=== PATIENT | female | born 1990 | race Caucasian/White ===

== ENCOUNTER 2022-02-18 00:43 | Day surgery (SDC) | payer OTHER, SELFPAY ==
[2022-02-04 13:32] VITALS: BMI 20.3
[2022-02-18 06:30] VITALS: BP 128/80; PULSE 95; RESP 20; TEMP 36.6; O2SAT 100
[2022-02-18] MEDS: LACTATED RINGERS 1,000 ML 150 ML IV CONT (06:48)
--- NOTE | 2022-02-18 07:01 | WPDANESEPPF ---
Anes - Initial Pre Proc Eval Procedure: Operation Date: 02/18/22 07:30 Proposed Procedures p Colonoscopy - Reg Brooks MD Date/Time: 02/18/22 07:01 Surgeon: Reg Brooks MD Pre Op Diagnosis: abnormal CAT scan Patient Data Age: 31 Gender: F Height: 1.7 m Weight: 57.8 kg Last Vital Signs Temp 36.6 C 02/18/22 06:30 Pulse 95 02/18/22 06:30 Resp 20 02/18/22 06:30 BP 128/80 02/18/22 06:30 Pulse Ox 100 02/18/22 06:30 Allergies Allergy/AdvReac Type Severity Reaction Status Date / Time No Known Allergies Allergy Verified 02/18/22 06:26 Home Medications Medication Instructions Recorded Confirmed Type levonorgestrel 20.1 mcg/24 hrs (6 1 device INTRAUTERINE ONCE #1 ea 06/29/21 02/04/22 Rx yrs) 52 mg intrauterine device Patient hx anesthesia problems: none Family hx anesthesia problems: none Results Review: All pre-operative results and documents have been reviewed as part of the pre-operative evaluation. [facility] Family History Family History Grandparent Diabetes mellitus Family history of glaucoma Hypertension Family history of lung cancer Family history of malignant neoplasm of brain Father Family history of hypercholesterolemia Hypertension Mother Family history of malignant melanoma Social History Social History Smoking status: Never smoker Alcohol intake: current Living arrangements: with family Anes - Eval Final PreProcedure Day of Procedure 02/18/22 07:01 Patient weight: normal Heart: regular rate and rhythm Lungs: clear to auscultation Airway: Mallampati scale class II Neurological: alert and oriented Last oral intake: >/= 8 hours ASA classification: I Emergent: no Anesthetic plan: proceed Anesthesia type and monitoring: general GIVS and standard monitoring Results Review: All pre-operative results and documents have been reviewed as part of the pre-operative evaluation. Informed Consent: The patient's anesthetic plan and its attendant risks and benefits were discussed with the patient/family/POA. Questions were solicited and answers provided to the satisfaction of the patient/family/POA.
--- NOTE | 2022-02-18 07:47 | WPDGICN ---
Assessment and Plan Assessment and plan (1) IBS (irritable bowel syndrome): Code(s): K58.9 - Irritable bowel syndrome without diarrhea Status: Acute Assessment and Plan: Patient's symptoms appear to correlate mostly with irritable bowel syndrome. Organic disease cannot be excluded for this reason colonoscopy will be performed high-fiber diet is advised. (2) Constipation: Code(s): K59.00 - Constipation, unspecified Status: Acute Assessment and Plan: Patient has tendency towards constipation would advise fiber supplement such as Metamucil daily supplement this with MiraLax as needed. (3) Abnormal CT scan, colon: Code(s): R93.3 - Abnormal findings on diagnostic imaging of other parts of digestive tract Status: Acute Assessment and Plan: CT scan performed in November suggest thickening of the rectosigmoid area. Plan is for colonoscopy to exclude organic disease. Possibilities include spasm or colitis. Further recommendations will be given after colonoscopy. GI Consult Note Consult date/time: 02/18/22 07:47 HPI: Venice Lane is a 31 year old female Presents for colonoscopy. Patient reports abdominal pain and constipation. This became very intense in November prompting her to go to the ER. CT scan suggests thickening of the sigmoid and rectum. Patient has noted difficulty with constipation. Occasionally straining with hard stool and subsequent irritation at the anus she has very infrequently noted bright red blood per rectum. Her family history is significant her grandmother may have had ulcerative colitis. There is no known history of polyps or cancer. She apparently has tried some probiotics. She continues to have difficulties with pain in in bowel habits but these may have improved over recent months. She presents today for colonoscopy because a CT scan done in November. Review of Systems Review of Systems: All systems reviewed & are unremarkable except as noted in HPI and below PMFSH Family History Family History Grandparent Diabetes mellitus Family history of glaucoma Hypertension Family history of lung cancer Family history of malignant neoplasm of brain Father Family history of hypercholesterolemia Hypertension Mother Family history of malignant melanoma Social History Social History Smoking status: Never smoker Alcohol intake: current Living arrangements: with family Meds Home Medications and Allergies Home Medications Medication Instructions Recorded Confirmed Type levonorgestrel 20.1 mcg/24 hrs (6 1 device INTRAUTERINE ONCE #1 ea 06/29/21 02/04/22 Rx yrs) 52 mg intrauterine device Allergies Allergy/AdvReac Type Severity Reaction Status Date / Time No Known Allergies Allergy Verified 02/18/22 06:26 Vital Signs Vital Signs - 24 hr 02/18/22 06:30 Temperature 98 F Pulse Rate 95 Respiratory Rate 20 Blood Pressure 128/80 Pulse Oximetry 100 Exam Narrative: Physical exam reveals patient to be alert. Vital signs stable. HEENT exam is unremarkable. Patient is anicteric. Lungs are clear to auscultation and percussion. Heart is without murmur or extra sounds. Abdominal exam bowel sounds are present soft nontender with no organomegaly. Digital external rectal exam is normal.
[2022-02-18 07:49] VITALS: BP 81/44; PULSE 69; RESP 19; O2SAT 99
[2022-02-18 07:59] VITALS: BP 97/76; PULSE 66; RESP 20; O2SAT 100
[2022-02-18 08:09] VITALS: BP 105/71; PULSE 57; RESP 16; O2SAT 100
== END 2022-02-18 08:15 | disposition home or self-care (01) ==
PROVIDERS: PCP Family Medicine; Visit Provider Internal Medicine Gastroenterology
PROC: 0DJD8ZZ Inspection of Lower Intestinal Tract, Via Natural or Artificial Opening Endoscopic (ICD-10-PCS; CPT 45378; principal; 2022-02-18 07:30)
DX: K57.30 Diverticulosis of large intestine without perforation or abscess without bleeding (principal); K64.8 Other hemorrhoids; R10.84 Generalized abdominal pain
CPT/HCPCS: 45378; J2704; J7120

== ENCOUNTER 2022-05-12 13:51 | Emergency (ER) | payer OTHER, SELFPAY ==
[2022-05-12 14:26] VITALS: BP 117/76; PULSE 65; RESP 16; TEMP 36.8; O2SAT 100
--- NOTE | 2022-05-12 14:43 | ED.SKABFB ---
HPI - Skin/Abscess/Foreign Bdy General Chief complaint: Skin/Abscess/Foreign Body Stated complaint: skin discoloration on rt side Time Seen by Provider: 05/12/22 14:46 Source: patient, RN notes reviewed and old records reviewed Mode of arrival: ambulatory Limitations: no limitations History of Present Illness HPI narrative: 32 year old female presents to express care with voiced concern about a lesion to her right lateral upper abdomen that she states has been there for the past year. Patient reports she had a skin lesion on her left abdomen that her PCP had removed in the office in the past but he has retired and she has to find another doctor. Patient states concern since mother has had a melanoma. Patient denies any changes in appearance or feel of lesion lately no increase in size. MD complaint: lesion Related Data Allergies Allergy/AdvReac Type Severity Reaction Status Date / Time No Known Allergies Allergy Verified 02/18/22 06:26 Review of Systems Review of Systems: CONSTITUTIONAL: Denies fever, chills, or sweats. EYES: Denies visual changes, redness, or discharge. ENT: Denies rhinorrhea, congestion, sore throat, or otalgia. CARDIOVASCULAR: Denies chest pain, palpitations, or edema. RESPIRATORY: Denies cough or dyspnea. GASTROINTESTINAL: Denies abdominal pain, nausea, vomiting, or diarrhea. GENITOURINARY: Denies dysuria or hematuria. SKIN: Denies rash or itching.skin lesion to right mid upper abdomen area MUSCULOSKELETAL: Denies back pain, joint pain, or myalgia. NEUROLOGIC: Denies headache, numbness, or weakness. PSYCHIATRIC: Denies anxiety or depression. [facility] Past Medical History Medical History (Updated 05/12/22 @ 17:03 by Malaika Huddleston NP) Constipation IBS (irritable bowel syndrome) Surgical History Surgical History (Updated 05/12/22 @ 17:03 by Malaika Huddleston NP) History of nevus excision Family History Family History Grandparent Diabetes mellitus Family history of glaucoma Hypertension Family history of lung cancer Family history of malignant neoplasm of brain Father Family history of hypercholesterolemia Hypertension Mother Family history of malignant melanoma Social History Social History Smoking status: Never smoker Alcohol intake: current Comments At time of signature, agree with nursing past medical, surgical, social and family history. There is no relevant family history pertinent to the presenting complaint Exam Narrative: GENERAL: Well-appearing, well-nourished, and in no acute distress. HEAD: Normocephalic, atraumatic. EYES: PERRLA and EOMI. ENT: Nares clear, no rhinorrhea or epistaxis. Mucous membranes moist.TM s normal with good light reflex, throat pink with no lesions or exudates, no tonsil swelling. NECK: Supple.no lymphadenopathy CHEST: Clear to auscultation. No respiratory distress.SAO2 100% on room air HEART: Regular rate and rhythm. No murmur heard. Normal peripheral pulses. ABDOMEN: Soft, nontender, nondistended, normal active bowel sounds. EXTREMITIES: Normal range of motion. No edema. SKIN: Warm, dry, no rash. 0.25 diameter pink firm lesion with some minimal keratosis of top tissue,no drainage NEURO: No focal deficits. Alert and oriented x3. Course Course Level of Care: Express Care Visit Vital Signs Vital signs: Vital Signs Temperature 36.8 C 05/12/22 14:26 Pulse Rate 65 05/12/22 14:26 Respiratory Rate 16 05/12/22 14:26 Blood Pressure 117/76 05/12/22 14:26 Pulse Oximetry 100 05/12/22 14:26 Oxygen Delivery Room Air 05/12/22 14:26 Temperature 36.8 C 05/12/22 14:26 Pulse Rate 65 05/12/22 14:26 Respiratory Rate 16 05/12/22 14:26 Blood Pressure 117/76 05/12/22 14:26 Pulse Oximetry 100 05/12/22 14:26 Oxygen Delivery Room Air 05/12/22 14:26 MDM - Skin/Abscess/Foreign Bdy Differential Diag
== END 2022-05-12 15:15 | disposition home or self-care (01) ==
PROVIDERS: Emergency Provider Registered Nurse; PCP Family Medicine
DX: L57.0 Actinic keratosis (principal)
CPT/HCPCS: 99211; G0463